=== PATIENT | female | born 1955 | race American Indian/Alaskan Native ===

== ENCOUNTER 2017-09-17 11:17 | Outpatient (CLI) | payer OTHER ==
--- NOTE | 2017-09-17 11:51 | XRay Report ---
XRAY BILATERAL KNEE THREE VIEWS EACH: 09/17/17 11:17:00 CLINICAL: Bilateral knee pain. FINDINGS: Right: Mild osteopenia. Mild medial joint space narrowing with small osteophytes. Slight widening of the lateral joint space. Minimal patellofemoral osteophytes. A prominent quadriceps insertion enthesophyte. No fracture or dislocation. No joint effusion. Normal soft tissues. Left: Mild osteopenia. The medial and lateral joint spaces are normal. Small patellofemoral osteophytes. A prominent quadriceps insertion enthesophyte. No fracture or dislocation. No joint effusion.Normal soft tissues. IMPRESSION: 1. 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 2. Left patellofemoral osteoarthritis and left quadriceps enthesopathy.
== END 2017-09-17 11:18 | disposition home or self-care (01) ==
LOC: SPVIMAG 11:17
PROVIDERS: ATTEND Orthopaedic Surgery
DX: M17.0 Bilateral primary osteoarthritis of knee (principal); M76.892 Other specified enthesopathies of left lower limb, excluding foot; M76.891 Other specified enthesopathies of right lower limb, excluding foot

== ENCOUNTER 2017-12-10 10:53 | Outpatient (CLI) | payer OTHER ==
--- NOTE | 2017-12-10 11:55 | XRay Report ---
Sinuses 3 views: History: Chronic frontal sinusitis. Findings: The frontal maxillary ethmoid and sphenoid sinuses are well pneumatized. The wall appears intact. Suspicion of mucosal thickening is noted. Nasal septum midline. Impression: Suspicion of mucosal thickening maxillary sinuses.
== END 2017-12-10 10:54 | disposition home or self-care (01) ==
LOC: SPVIMAG 10:53
PROVIDERS: ATTEND Family Medicine
DX: J32.1 Chronic frontal sinusitis (principal)
CPT/HCPCS: 70220